=== PATIENT | female | born 2000 | race Caucasian/White ===

== ENCOUNTER 2021-05-11 09:15 | Outpatient (CLI) | payer OTHER ==
--- NOTE | 2021-05-11 15:32 | MRI Report ---
PROCEDURE: Ankle LT W/O INDICATIONS: LEFT NAKLE PAIN, POSSIBLE MASS TECHNIQUE: Noncontrast Magnetic Resonance Imaging (MRI) of the ankle/hindfoot was performed utilizing the follow ing sequences on a 3.0 Natasha Siemens MRI: sagittal T1 spin echo, sagittal STIR, axial PD fast spin ec ho, axial T2 fast spin echo with fat saturation, coronal T2 spin echo with fat saturation, and PD fas t spin echo with fat saturation. COMPARISON: None. FINDINGS: Image quality: Diagnostic. Bones and joints: No acute fracture, dislocation, or suspicious osseous lesion of the midfoot or hindfoot bones is pres ent. No significant midfoot or hindfoot joint effusions are present. The ankle mortise is well-mainta ined. No osteochondral defects are evident involving the tibial plafond toward the talar dome. No sig nificant degenerative changes of the midfoot or hindfoot joints are present. Medial structures: The deltoid ligament and the spring ligament are intact. The posterior tibialis, flexor digitorum longus, and flexor hallucis longus tendons are intact and wi thin normal limits. The posterior tibial neurovascular bundle appears normal within the tarsal tunnel , without extrinsic mass effect. A lobulated and homogeneously T2 hyperintense and T1 hypointense structure is seen in soft tissue ove r medial malleolus and measures up to 2.7 x 1 x 3.7 cm in its largest AP, transverse and craniocaudal dimensions. Finding likely represent a large ganglion cyst. Lateral structures: The anterior and posterior distal tibiofibular ligaments are also intact. The anterior talofibular li gament, posterior talofibular ligament, and calcaneofibular ligament are intact. The peroneus longus and peroneus brevis tendons are intact and otherwise unremarkable. The sinus tarsi demonstrates normal fatty signal. Anterior structures: The tibialis anterior, extensor hallucis longus, and extensor digitorum longus tendons appear intact. Posterior and plantar structures: The Achilles tendon is intact. The medial and lateral bands of the plantar fascia are within normal l imits. IMPRESSION: 1. Suggestion of a 2.7 x 1 x 3.7 cm ganglion cysts in soft tissue over lateral malleolus. 2. Ankle tendons and ligaments are grossly intact. 3. No marrow edema. No fracture or dislocation. No suspicious intraosseous lesion. Reviewed by: Mika Torres MD on 05/11/2021 3:31 PM PST Approved by: Mika Torres MD on 05/11/2021 3:31 PM PST Station ID: [id number]
== END 2021-05-11 09:16 | disposition home or self-care (01) ==
LOC: DI 09:15
PROVIDERS: ATTEND Orthopaedic Surgery
DX: R93.6 Abnormal findings on diagnostic imaging of limbs (principal); R93.89 Abnormal findings on diagnostic imaging of other specified body structures

== ENCOUNTER 2021-07-07 14:33 | Emergency (ER) | payer OTHER ==
[2021-07-07] MEDS ORDERED: BUTALB/ACETAM/CAFF 50/325/40MG TABLET PO STA (14:51)
--- NOTE | 2021-07-07 15:21 | CT Report ---
PROCEDURE: HEAD WO INDICATIONS: head injury, worsening headache TECHNIQUE: Noncontrast 4.5 mm thick angled axial sections acquired from the foramen magnum to the vertex. For r adiation dose reduction, the following was used: automated exposure control, adjustment of mA and/or kV according to patient size. COMPARISON: None. FINDINGS: Image quality: Excellent. CSF spaces: Basal cisterns are patent. No extra-axial fluid collections. Ventricles are normal in size and shape. Brain: No midline shift. No intracranial masses or hemorrhage. Rivera-white matter interface is norm al. Skull and face: Calvarium and visualized facial bones are intact, without suspicious lesions. Sinuses: Visualized sinuses and mastoids are clear. IMPRESSION: 1. No acute intracranial process. Reviewed by: Pamela Terrazas MD on 07/07/2021 3:20 PM PDT Approved by: Pamela Terrazas MD on 07/07/2021 3:20 PM PDT Station ID: [id number]
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
[2021-07-07] MEDS ORDERED: PROCHLORPERAZINE 10 MG/2 ML VIAL IM STA (15:32)
[2021-07-07] MEDS ORDERED: KETOROLAC 60 MG/2 ML VIAL IM STA (15:32)
[2021-07-07] MEDS ORDERED: diphenhydrAMINE INJ 50 MG/ML VIAL IM STA (15:32)
[2021-07-07 17:01] VITALS: BP 108/69
== END 2021-07-07 16:59 | disposition home or self-care (01) ==
LOC: EDUNIT# → ED 14:33
DX: S06.0X0A Concussion without loss of consciousness, initial encounter (principal); W22.8XXA Striking against or struck by other objects, initial encounter; Y93.89 Activity, other specified
CPT/HCPCS: 70450; 96372; 99282; 99284; A9270; J1200

== ENCOUNTER 2021-11-19 15:18 | Emergency (ER) | payer OTHER ==
[2021-11-19 15:59] LABS: BASOPHILS % (AUTO) 0.6 %; EOSINOPHILS # (AUTO) 0.2 10^3/uL (0.0-0.7); EOSINOPHILS % (AUTO) 2.4 %; HCT - HEMATOCRIT 33.3 % (37.0-47.0); LYMPHOCYTES # (AUTO) 2.6 10^3/uL (1.5-3.5); MEAN CORPUSCULAR HEMOGLOBIN 28.9 pg (27.0-31.0); MEAN CORPUSCULAR VOLUME 87.6 fL (81.0-99.0); MONOCYTES # (AUTO) 0.4 10^3/uL (0.0-1.0); MONOCYTES % (AUTO) 6.3 %; NEUTROPHILS # (AUTO) 3.5 10^3/uL (1.5-6.6); NEUTROPHILS % (AUTO) 52.4 %; PLT - PLATELET COUNT 292 10^3/uL (130-450); WHITE BLOOD COUNT 6.7 x10^3/uL (4.8-10.8)
[2021-11-19 16:13] LABS: ALBUMIN 4.8 g/dL (3.2-5.5); ALBUMIN/GLOBULIN RATIO 1.5 (1.0-2.2); BILIRUBIN,TOTAL 0.5 mg/dL (0.2-1.0); CREATININE 0.8 mg/dL (0.4-1.0); POTASSIUM 3.9 mmol/L (3.5-5.0); TOTAL PROTEIN 7.9 g/dL (6.7-8.2)
[2021-11-19 16:25] LABS: BILIRUBIN,URINE NEGATIVE (NEGATIVE); GLUCOSE, URINE (UA) NEGATIVE (NEGATIVE); KETONES,URINE (UA) NEGATIVE (NEGATIVE); LEUKOCYTE ESTERASE, URINE NEGATIVE (NEGATIVE); NITRITE,URINE NEGATIVE (NEGATIVE); OCCULT BLOOD,URINE SMALL (NEGATIVE); PROTEIN,URINE NEGATIVE (NEGATIVE); UROBILINOGEN,URINE 0.2 (NORMAL) E.U./dL (NORMAL)
[2021-11-19 16:28] LABS: CLARITY,URINE CLEAR (CLEAR); HCG UR QUAL POSITIVE
[2021-11-19 16:33] LABS: BACTERIA,URINE Rare /HPF (None Seen); RBC,URINE 0-5 /HPF (0-5); SQUAMOUS EPITHELIAL CELL,UR RARE Squamous (<= Few); WBC,URINE 0-3 /HPF (0-5)
--- NOTE | 2021-11-19 16:46 | ED Physician Documentation ---
History of Present Illness - Stated complaint Stated Complaint: ABD PX - Chief complaint Chief Complaint: Abd Pain - Additonal information Additional information: 21-year-old female presents emergency department for evaluation of abdominal di scomfort And occasional nausea that has been ongoing for about 2 weeks. Though she does not have any anabelle dysuria urgency or frequency she has had similar symptoms with urinary tract infections. She did go to the [facility] where they tested her and found that she was . She states that she has been having her menstrual cycle for 6 days and was unaware that she was . She does report that this episode of vaginal bleeding arrived on time as she would expect. No history of previous . No fevers. No changes in bowel habits Review of Systems Constitutional: denies: Fever, Chills Cardiac: reports: Reviewed and negative Respiratory: reports: Reviewed and negative GI: reports: Abdominal Pain, Nausea. denies: Vomiting, Constipation, Diarrhea : reports: Vaginal bleeding. denies: Dysuria, Frequency, Hesitancy Skin: reports: Reviewed and negative Musculoskeletal: reports: Reviewed and negative PD PAST MEDICAL HISTORY - Past Surgical History Past Surgical History: No - Present Medications Home Medications: Ambulatory Orders Medication Instructions Recorded Confirmed HYDROcod/ACETAM 5/325 [[place] 5/325] 1 - 2 ea PO Q6H PRN #14 tablet 07/07/21 Meloxicam [Mobic] 7.5 mg PO BID PRN #20 tablet 07/07/21 Ondansetron Odt [Zofran] 4 mg TL Q6H PRN #10 tablet 07/07/21 - Allergies Allergies/Adverse Reactions: Allergies Allergy/AdvReac Type Severity Reaction Status Date / Time No Known Drug Allergies Allergy Verified 11/19/21 15:25 - Social History Does the pt smoke?: No Does the pt have substance abuse?: No PD ED PE NORMAL - General General: Alert and oriented X 3, No acute distress, Well developed/nourished - HEENT HEENT: Atraumatic, Moist mucous membranes - Neck Neck: Supple, no meningeal sign, No adenopathy - Cardiac Cardiac: RRR, No murmur - Respiratory Respiratory: No respiratory distress, Clear bilaterally - Abdomen Abdomen: Normal bowel sounds, Soft. No: Non tender (Mild lower pelvic suprapubic tenderness. Nonfocal. 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 Eye Opening: Spontaneous Motor: Obeys Commands Verbal: Oriented GCS Score: 15 Results - Vitals Vitals: Vital Signs - 24 hr 11/19/21 11/19/21 11/19/21 15:20 16:49 18:17 Temperature 36.4 C L Heart Rate 87 81 70 Respiratory 14 12 16 Rate Blood Pressure 120/83 H 101/71 107/68 O2 Saturation 100 99 99 Oxygen O2 Source Room air - Labs Labs: Laboratory Tests 11/19/21 11/19/21 11/19/21 15:55 15:55 15:55 WBC 6.7 RBC 3.80 L Hgb 11.0 L Hct 33.3 L MCV 87.6 MCH 28.9 MCHC 33.0 RDW 14.0 Plt Count 292 MPV 10.0 Neut # (Auto) 3.5 Lymph # (Auto) 2.6 [place] # (Auto) 0.4 Eos # (Auto) 0.2 Baso # (Auto) 0.0 Absolute Nucleated RBC 0.00 Nucleated RBC % 0.0 Sodium 138 Potassium 3.9 Chloride 101 Carbon Dioxide 27 Anion Gap 10.0 BUN 16 Creatinine 0.8 Estimated GFR (MDRD) 91 Glucose 85 Calcium 10.0 Total Bilirubin 0.5 AST 17 ALT 11 Alkaline Phosphatase 40 L Total Protein 7.9 Albumin 4.8 Globulin 3.1 Albumin/Globulin Ratio 1.5 Lipase 47 HCG, Quant 191.86 Urine Color Urine Clarity Urine pH Ur Specific [place] Urine Protein Urine Glucose (UA) Urine Ketones Urine Occult Blood Urine Nitrite Urine Bilirubin Urine Urobilinogen Ur Leukocyte Esterase Urine RBC Urine WBC Ur Squamous Epith Cells Urine Bacteria Ur Microscopic Review Urine Culture Comments Urine HCG, Qual Blood Type 11/19/21 11/19/21 16:15 16:42 WBC RBC Hgb Hct MCV MCH MCHC RDW Plt Count MPV Neut # (Auto) Lymph # (Auto) [place] # (Auto) Eos # (Auto) Baso # (Auto) Absolute Nucleated RBC Nucleated RBC % Sodium Potassium Chloride Carbon Dioxide Anion Gap BUN Creatinine Estimated GFR (MDRD) Glucose Calcium Total Bilirubin AST ALT Alkaline Phosphatase Total Protein Albumin Globulin Albumin/Globulin Ratio Lipase HCG, Quant Urine Color YELLOW Urine Clarity CLEAR Urine pH 7.0 Ur Specific [place] 1.015 Urine Protein NEGATIVE Urine Glucose (UA) NEGATIVE Urine Ketones NEGATIVE Urine Occult Blood SMALL H Urine Nitrite NEGATIVE Urine Bilirubin NEGATIVE Urine Urobilinogen 0.2 (NORMAL) Ur Leukocyte Esterase NEGATIVE Urine RBC 0-5 Urine WBC 0-3 Ur Squamous Epith Cells RARE Squamous Urine Bacteria Rare Ur Microscopic Review INDICATED Urine Culture Comments NOT INDICATED Urine HCG, Qual POSITIVE Blood Type A POSITIVE - Rads (name of study) PElvic US Radiology: Final report received (Moderate to large volume of mixed echogenicity complex fluid and debris in the uterine cavity. 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 She is also been having some nausea. She had been having lower abdominal cramping [facility] she was however she states that she started her normal menstrual cycle regularly about 6 days ago. On exam she has some mild lower suprapubic tenderness. Her screening labs show no leukocytosis or worrisome electrolyte abnormality. Patient is Rh+. Her beta hCG today is 198 confirming . An ultrasound was completed and it does show large volume of mixed echogenicity Complex fluid and debris in the uterine cavity. This presumably represents either retained products or active hemorrh age. This case was briefly discussed with OB on-call Dr. Hammer. We reviewed the imaging and labs. At this time given patient's clinical stability we will proceed with expected management of what is thought to be a miscarriage. Patient will request referral to OB to be seen either later this week or early next week. She is advised to return immediately for any fevers, severe vaginal bleeding fainting episodes tachycardia or shortness of air. Departure - Departure Disposition: 01 Home, Self Care Clinical Impression: Incomplete miscarriage Condition: Stable Record reviewed to determine appropriate education?: Yes Instructions: ED Miscarriage Incom Follow-Up: Benjamin Hammer MD [Provider Admit Priv/Credential] - Comments: austen ward are seen today in the emergency department and are found to be . Your beta-hCG today is 198. However you have been having some vaginal bleeding for about 1 week. When we did the ultrasound today we see that you have a lot of complex fluid and debris in your uterine cavity. This likely represents the products of conception. However it is likely that you are having a miscarriage that is not yet complete. We discussed with Dr. Hammer and at this time would like to practice what is called expected management. Please monitor your bleeding over the next few days. We would expect with most miscarriages for the bleeding to be completed by 7 to 10 days. If at any point you are having increased bleeding, saturating a pad or tampon every hour for 4 more hours, develop any fevers, worsening abdominal pain uncontrolled vomiting or have fainting episodes then please return immediately to the ER. Please [place] from [place] to OB. Dr. Hammer would like to see you early next week in follow-up
--- NOTE | 2021-11-19 19:02 | Ultrasound Report ---
PROCEDURE: OB First Trimester INDICATIONS: Left flank pain, positive hCG TECHNIQUE: Real-time scanning was performed of the fetus and maternal pelvic organs, with image documentation. COMPARISON: None FINDINGS: Moderate to large volume of complex mixed echogenicity fluid and debris in the uterine cav ity. There is no clear gestational sac or obvious tissue identified. IMPRESSION: Moderate to large volume of mixed echogenicity complex fluid and debris in the uterine cavity. Findin gs presumably represent either retained products of conception or active hemorrhage. Correlate with h istory, menstrual status, and hCG. Reviewed by: Александр Diaz MD on 11/19/2021 7:00 PM PDT Approved by: Александр Diaz MD on 11/19/2021 7:00 PM PDT Station ID: [id number]
[2021-11-19 19:52] VITALS: BP 107/74
== END 2021-11-19 19:55 | disposition home or self-care (01) ==
LOC: ED 15:18
DX: O03.4 Incomplete spontaneous abortion without complication (principal); Z3A.01 Less than 8 weeks gestation of pregnancy
CPT/HCPCS: 36415; 80053; 81001; 81003; 81025; 83690; 84702; 85025; 86900; 86901; 87086; 99283; 99284